=== PATIENT | female | born 1925 | race Caucasian/White ===

== ENCOUNTER 2017-04-05 18:15 | Inpatient (IN) | payer MEDICARE, BC ==
[~2017-04-05] VITALS: Ht 152.4 cm; Wt 63.5 kg
[~2017-04-05 18:15] MED LIST: ASPI81TA31 PO; METOPROLOL PO; TRAZ-144 PO
[2017-04-05] MEDS ORDERED: MORPHINE SULFATE 2 MG/1 ML DISP.SYRIN IV ONE ×2 (18:45→19:45)
[2017-04-05] MEDS ORDERED: ONDANSETRON 4 MG/2 ML VIAL IV ONE (18:45)
[2017-04-05] MEDS ORDERED: METO-302 PO (18:48)
[2017-04-05] MEDS ORDERED: BISA10SU8 RC (18:48)
[2017-04-05] MEDS ORDERED: ATOR20TA PO (18:48)
[2017-04-05] MEDS ORDERED: SENN-167 PO (18:48)
[2017-04-05] MEDS ORDERED: GABA-532 PO (18:48)
[2017-04-05] MEDS ORDERED: ACET-53 PO (18:48)
[2017-04-05] MEDS ORDERED: TRAZ-144 PO (18:48)
[2017-04-05] MEDS ORDERED: BUME0.5T3 PO (18:48)
[2017-04-05] MEDS ORDERED: SIME80TA15 PO (18:48)
[2017-04-05] MEDS ORDERED: LACT1CAP7 PO (18:48)
[2017-04-05] MEDS ORDERED: CRAN425C6 PO (18:48)
[2017-04-05] MEDS ORDERED: NA P133E RC (18:48)
[2017-04-05] MEDS ORDERED: MAGN400O6 PO (18:48)
[2017-04-05] MEDS ORDERED: MUPI22OI2 (18:48)
[2017-04-05] MEDS ORDERED: PANT20TA2 PO (18:48)
[2017-04-05] MEDS ORDERED: ONDANSETRON 4 MG/2 ML VIAL ONE (19:11)
[2017-04-05] MEDS ORDERED: MORPHINE SULFATE 2 MG/1 ML DISP.SYRIN ONE ×2 (19:11→22:36)
[2017-04-05] MEDS ORDERED: IV NORMAL SALINE 1000 ML BAG IV ONE (19:45)
[2017-04-05] MEDS ORDERED: MORPHINE SULFATE 4 MG/1 ML DISP.SYRIN ONE ×2 (19:55→21:00)
[2017-04-05 19:56] LABS: CARBON DIOXIDE 30 mmol/L (21-32); CHLORIDE 103 mmol/L (98-107); GLUCOSE 175 mg/dL (74-106); POTASSIUM 4.1 mmol/L (3.5-5.1); UREA NITROGEN, BLOOD 28 mg/dL (7-18)
[2017-04-05 19:57] LABS: BASOPHILS # (AUTO) 0.1 K/uL (0.0-8.0); BASOPHILS % (AUTO) 0.9 % (0.0-2.0); EOSINOPHILS % (AUTO) 0.4 % (0.0-7.0); HEMATOCRIT 42.4 % (37-47); HEMOGLOBIN 13.8 G/DL (12.0-16.0); LYMPHOCYTES # (AUTO) 1.1 K/UL (0.8-4.8); LYMPHOCYTES % (AUTO) 10.1 % (20.5-51.5); MEAN CORPUSCULAR HEMOGLOBIN 28.6 UUG (27.0-31.0); MEAN CORPUSCULAR HGB CONC 33 g/dL (32.0-37.0); MEAN CORPUSCULAR VOLUME 87.7 FL (81.0-99.0); MONOCYTES # (AUTO) 0.6 K/UL (0.1-1.30); MONOCYTES % (AUTO) 5.9 % (0.0-11.0); NEUTROPHILS # (AUTO) 8.7 K/UL (1.8-8.9); NEUTROPHILS % (AUTO) 82.7 % (38.5-71.5); PLATELET COUNT (AUTO) 180 K/UL (150-450); RED BLOOD CELL COUNT(AUTO) 4.83 MIL/UL (4.2-5.4); WHITE BLOOD COUNT (AUTO) 10.5 K/UL (4.0-11.2)
[2017-04-05 20:01] LABS: ALANINE AMINOTRANSFERASE 22 U/L (14-59); ALKALINE PHOSPHATASE 177 U/L (50-136); ASPARTATE AMINOTRANSFERASE 19 U/L (15-37); BILIRUBIN,DIRECT 0.1 mg/dL (0.0-0.2); BILIRUBIN,TOTAL 0.3 mg/dL (0.2-1.0); TOTAL PROTEIN, SERUM 7.8 g/dL (6.4-8.2)
[2017-04-05 20:25] LABS: BAND % (MANUAL) 8 % (0-10); LYMPHOCYTES % (MANUAL) 10 % (20-40); MONOCYTES % (MANUAL) 8 % (2-10); NEUTROPHILS % (MANUAL) 74 % (42-75)
--- NOTE | 2017-04-05 20:56 | NUR ---
Call placed to [facility], Dr. De La Cruz will be paged.
[2017-04-05] MEDS ORDERED: MORPHINE SULFATE 4 MG/1 ML DISP.SYRIN IV ONE (21:00)
--- NOTE | 2017-04-05 21:18 | NUR ---
Call placed to front desk lead ORTHODr. Torres will be paged.
--- NOTE | 2017-04-05 21:55 | NUR ---
Pt. admitted to TELE, under care of Dr. De La Cruz Belongs List completed
[2017-04-05] MEDS: METOPROLOL SUCCINATE XL 25 MG TAB.SR.24H PO SCH ×2 (22:15→22:24)
[2017-04-05] MEDS ORDERED: FLEET ENEMA 133 ML BOTTLE RC PRN (22:15)
[2017-04-05] MEDS ORDERED: ONDANSETRON 4 MG/2 ML VIAL IV PRN (22:15)
[2017-04-05] MEDS ORDERED: ACETAMINOPHEN 650 MG SUPP.RECT RC PRN (22:15)
[2017-04-05] MEDS ORDERED: SIMETHICONE 80 MG TAB.CHEW PO PRN (22:15)
[2017-04-05] MEDS ORDERED: LORAZEPAM 2 MG/1 ML VIAL IV PRN (22:15)
--- NOTE | 2017-04-05 22:15 | NUR ---
nsg: pt received awake but confused, crying, fr er with dx of left hip fracture. lungs sound clear to auscultate. tele, SR with pac's. heplock on right hand patent. daughter at the bedside. will cont to monitor.
[2017-04-05 22:19] VITALS: BP 143/87
[2017-04-05] MEDS: MORPHINE SULFATE 2 MG/1 ML DISP.SYRIN IV PRN (22:25)
[2017-04-05] MEDS ORDERED: METOPROLOL SUCCINATE XL 25 MG TAB.SR.24H PO ONE (22:36)
--- NOTE | 2017-04-05 22:36 | NUR ---
TROPROL NOT GIVEN, PT ALREADY TOOK MED.
[2017-04-05] MEDS ORDERED: VANCOMYCIN IV 1 G in PREMIXED 0 EACH IV ONE (23:30)
[2017-04-05] MEDS ORDERED: VANCOMYCIN 1000 MG VIAL ONE (23:52)
[2017-04-05 23:58] LABS: *BILIRUBIN,URIN NEGATIVE (NEGATIVE); *BLOOD, URINE NEGATIVE (NEGATIVE); *CLARITY,URINE CLOUDY (CLEAR); *COLOR,URINE YELLOW (YELLOW); *KETONES,URINE NEGATIVE (NEGATIVE); *PROTEIN,URINE NEGATIVE (NEGATIVE); *UROBILINOGEN,URINE 0.2 E.U./dl (NORMAL); LEUKOCYTE ESTERASE ,URINE TRACE (NEGATIVE); NITRITE, URINE NEGATIVE (NEGATIVE); PH,URINE 6.5 (5.0-8.0); UGLUCOSE NEGATIVE (NEGATIVE)
[2017-04-06 00:05] LABS: BACTERIA,URINE MANY /HPF (NONE SEEN); RBC,URINE 0-3 /HPF (0-3); SQUAMOUS EPITHELIAL CELL,UR FEW /HPF (NONE SEEN)
[2017-04-06 00:24] VITALS: BP 118/49
[2017-04-06] MEDS: MORPHINE SULFATE 2 MG/1 ML DISP.SYRIN IV PRN ×6 (03:29→18:47)
[2017-04-06] MEDS ORDERED: MORPHINE SULFATE 2 MG/1 ML DISP.SYRIN ONE (03:40)
[2017-04-06 04:00] VITALS: BP 104/47
[2017-04-06 04:26] VITALS: BP 93/56
--- NOTE | 2017-04-06 04:27 | NUR ---
nsg: pt hr increased to 130's, sinus tachycardia. pt is awake but calm, no acute distress noted. v/s as follows: 97.7F AX, 98 hr, 93/56, O2 sat on ra 96%. cont to monitor.
[2017-04-06 06:17] LABS: EOSINOPHILS % (AUTO) 0.5 % (0.0-7.0); LYMPHOCYTES # (AUTO) 1.5 K/UL (0.8-4.8); MEAN CORPUSCULAR HEMOGLOBIN 28.2 UUG (27.0-31.0); MEAN CORPUSCULAR HGB CONC 32 g/dL (32.0-37.0); MEAN CORPUSCULAR VOLUME 87.4 FL (81.0-99.0); MONOCYTES # (AUTO) 0.7 K/UL (0.1-1.30); MONOCYTES % (AUTO) 8.6 % (0.0-11.0); NEUTROPHILS # (AUTO) 5.4 K/UL (1.8-8.9); NEUTROPHILS % (AUTO) 71.9 % (38.5-71.5); PLATELET COUNT (AUTO) 171 K/UL (150-450)
--- NOTE | 2017-04-06 06:30 | NUR ---
NSG: PT COMFORTABLE RESTING IN BED, ASLEEP. BUCKS TRACTION, DVT PUMP IN PLACE. SON AT THE BEDSIDE.
[2017-04-06 06:34] LABS: WHITE BLOOD COUNT (AUTO) 7.6 K/UL (4.0-11.2)
[2017-04-06 06:35] LABS: HEMATOCRIT 35.5 % (37-47); HEMOGLOBIN 11.4 G/DL (12.0-16.0); RED BLOOD CELL COUNT(AUTO) 4.06 MIL/UL (4.2-5.4)
--- NOTE | 2017-04-06 08:00 | NUR ---
RECEIVED PATIENT IN BED SLEEPING ON AND OFF CONFUSED AND DISORIENTED HAS 5 POUNDS BUCKS TRACTION ORDERED WITH DVT PUMP TO HER RIGHT LEG AND BOND TO GRAVITY DRAINAGE PATIENTS SON IN LAW IS AT THE BEDSIDE MADE COMFORTABLE.
[2017-04-06] MEDS: SENNOSIDES 1 TABLET PO SCH ×2 (08:45→17:12)
[2017-04-06] MEDS: BUMETANIDE 1 MG TABLET PO SCH (08:45)
[2017-04-06] MEDS ORDERED: PANTOPRAZOLE SODIUM 40 MG VIAL IV SCH (09:00)
[2017-04-06 09:23] LABS: ALANINE AMINOTRANSFERASE 18 U/L (14-59); ALKALINE PHOSPHATASE 140 U/L (50-136); ASPARTATE AMINOTRANSFERASE 22 U/L (15-37); BILIRUBIN,TOTAL 0.4 mg/dL (0.2-1.0); CARBON DIOXIDE 29 mmol/L (21-32); CHLORIDE 107 mmol/L (98-107); CREATININE 1.1 mg/dL (0.6-1.3); GLUCOSE 95 mg/dL (74-106); POTASSIUM 4.1 mmol/L (3.5-5.1); TOTAL PROTEIN, SERUM 6.4 g/dL (6.4-8.2); UREA NITROGEN, BLOOD 27 mg/dL (7-18)
[2017-04-06] MEDS: CEFTRIAXONE 1 G in IV DEXTROSE 5% 50 ML IV SCH (09:47)
--- NOTE | 2017-04-06 10:00 | NUR ---
PATIENT PLACED ON FIRST STEP MATTRASS FOR GOOD BODY ALLIGNMENT.TURNED AND REPOSITIONED Q2H WITH MUCH DIFFICULTY SCREAMS AND PINCHES UNCOOPERATIVE EVEN AFTER PAIN MEDICATIONS GIVEN.
[2017-04-06] MEDS: METOPROLOL SUCCINATE XL 25 MG TAB.SR.24H PO SCH ×2 (10:15→13:59)
[2017-04-06] MEDS: IV NS 1000 ML 1,000 ML IV PRN (10:25)
--- NOTE | 2017-04-06 11:28 | NUR ---
DR COATES HERE TO SEE PATIENT WITH NO NEW ORDERS.PATIENTS SON IN LAW IS AT THE BEDSIDE.
[2017-04-06 11:49] VITALS: BP 114/66
--- NOTE | 2017-04-06 14:04 | NUR ---
HEART RATE AT THIS TIME IS 130 TO 132 VITALS CHECKED AND B/P IS 126/86 ATTEMPTED TO GIVE HER UNSCHEDULED METOPROLOL BUT SHE IS SPITTING THE MEDICATION OUT AT THIS TIME THE DAUGHTER AND SON IN LAW IS AT THE BEDSIDE AND IS ASSISTING WITH CALMING HER DOWN AND ENCOURAGING HER TO TAKE THE METOPROLOL.
--- NOTE | 2017-04-06 14:19 | NUR ---
CALLED AND SPOKE WITH DR RIVERA RE PATIENTS HEART RATE IS STILL ELEVATED WITH ORDERS AND NOTED.
[2017-04-06] MEDS ORDERED: CLONIDINE-TTS 1 PATCH TD SCH (14:30)
--- NOTE | 2017-04-06 15:28 | NUR ---
Clinical pharmacy note-Vancomycin dosing per pharmacy Subjective; To start Vancomycin dosing on this patient for cellulitis Objective; BUN 27 Scr 1.1 WBC 7.6 Temp 98 Assessment/Plan: Patient had Vancomycin 1 gram in ER today at 0019. Will continue Vancomycin 1 gram IV every 36hrs (second dose tomorrow at 1200) and draw trough by 4th dose(not ordered yet) for expected trough around 15. Will monitor renal function closely to adjust the dose if needed. Will monitor daily.
[2017-04-06 16:07] VITALS: BP 131/91
[2017-04-06] MEDS ORDERED: AMIODARONE HCL 200 MG TABLET PO SCH (17:45)
--- NOTE | 2017-04-06 18:00 | NUR ---
HEART RATE IS MUCH IMPROVED AT THIS TIME AT [address] MAS WITH NEW ORDERS AND NOTED.
[2017-04-06 20:25] VITALS: BP 120/80
[2017-04-06] MEDS: METOPROLOL TARTRATE 25 MG TABLET PO SCH (20:56)
[2017-04-06] MEDS: TRAZODONE 100 MG TABLET PO SCH (20:56)
[2017-04-06] MEDS ORDERED: TRAZODONE 50 MG TABLET PO SCH (21:00)
[2017-04-07 00:21] VITALS: BP 100/49
[2017-04-07] MEDS: IV NS 1000 ML 1,000 ML IV PRN ×2 (02:00→16:18)
[2017-04-07] MEDS: MORPHINE SULFATE 2 MG/1 ML DISP.SYRIN IV PRN ×5 (02:54→21:04)
[2017-04-07 04:00] VITALS: BP 165/70
--- NOTE | 2017-04-07 05:55 | NUR ---
Patient slepted some during the night three to four hours total intermittently in no acute distress, when awake patient starts pulling off tele , blanket, gown and IV. pt confused and disoriented with fearful facial expression, grimaces noted, BP elevated 165/70. pt re-oriented x 4 frequently and medicated with morphine 2mg IVP q3hr prn with Relief, shortly after falls asleep. BP and HR improved 78-80's SR.
[2017-04-07] MEDS: METOPROLOL TARTRATE 25 MG TABLET PO SCH ×2 (09:00→20:52)
[2017-04-07] MEDS: SENNOSIDES 1 TABLET PO SCH ×2 (09:15→16:17)
[2017-04-07] MEDS: BUMETANIDE 1 MG TABLET PO SCH (09:15)
[2017-04-07] MEDS: CEFTRIAXONE 1 G in IV DEXTROSE 5% 50 ML IV SCH (09:15)
[2017-04-07] MEDS: AMIODARONE HCL 200 MG TABLET PO SCH ×2 (09:15→20:51)
--- NOTE | 2017-04-07 09:23 | NUR ---
BLOOD PRESSURE CHECKED AND ITS 117/44 HEART RATE IS 80 DUE ORDER FOR AMIODARONE GIVEN BUT HER METOPROLOL HELD WILL INFORM THE DOCTOR.
--- NOTE | 2017-04-07 09:50 | NUR ---
ON FIRST STEP MATTRASS DOZING ON AND OFF AND CONFUSED AND DISORIENTED WHEN AWAKE WITH NO S/S OF PAIN OR DISCOMFORTS.PATIENTS SON IN LAW JESS HERE AT HIS BEDSIDE ASSISTING NEEDED.APPETITE IS POOR FED BY HER SON IN LAW ORAL FLUID INTAKE HAS BEEN ADEQUATE BUCKS TRACTION REMAIN IN USE ORDERED TURNED AND REPOSITIONED Q2H AND TOLERATED POORLY MADE COMFORTABLE AND WILL CONTINUE TO OBSERVE.
[2017-04-07] MEDS ORDERED: VANCOMYCIN IV 1 G in PREMIXED 0 EACH IV SCH (12:00)
[2017-04-07 12:06] VITALS: BP 114/84
--- NOTE | 2017-04-07 13:00 | NUR ---
PER DR RIVERA PATIENT IS SCHEDULED FOR SURGERY TOMORROW BY DR COATES TO REPAIR HER BROKEN HIP.NO ORDERS FROM DR COATES OF YET.PATIENTS DAUGHTER CAMRYN CORTEZ.
[2017-04-07 16:48] VITALS: BP 123/59
--- NOTE | 2017-04-07 17:49 | NUR ---
DR MAS HERE TO SEE PATIENT AWARE OF THE FLUCTUATIONS IN HER BLOOD PRESSURES THE SYSTOLIC AND THE DIASTOLIC AND THE HEART RATE GOING HIGH 129 TODAY DESPITE THE AMIODARONE WITH NEW ORDERS AND NOTED.
--- NOTE | 2017-04-07 18:00 | NUR ---
CONFUSED DISORIENTED ON AND OFF CONFUSSION AND DISORIENTATION PATIENTS ZIAN COWAN IS AT THE BEDSIDE SAFETY PROVIDED AT ALL TIMES.
[2017-04-07 20:13] VITALS: BP 144/81
[2017-04-07] MEDS: ACETAMINOPHEN 325 MG TABLET PO PRN (20:51)
[2017-04-07] MEDS: TRAZODONE 100 MG TABLET PO SCH (20:51)
[2017-04-07] MEDS ORDERED: MORPHINE SULFATE 2 MG/1 ML DISP.SYRIN IV PRN (21:00)
[2017-04-07] MEDS: Z GUARD REMEDY PASTE 57 GM TUBE TOP SCH (21:00)
[2017-04-08] VITALS (9 sets, daily range): BP systolic 102–138; BP diastolic 47–65
[2017-04-08] MEDS: MORPHINE SULFATE 2 MG/1 ML DISP.SYRIN IV PRN ×5 (02:21→23:38)
[2017-04-08] MEDS: IV NS 1000 ML 1,000 ML IV PRN (06:40)
[2017-04-08] MEDS: PANTOPRAZOLE SODIUM 40 MG TABLET.DR PO SCH (06:42)
[2017-04-08] MEDS: AMIODARONE HCL 200 MG TABLET PO SCH ×2 (08:44→20:32)
[2017-04-08] MEDS: METOPROLOL TARTRATE 25 MG TABLET PO SCH ×2 (08:45→20:33)
[2017-04-08] MEDS: CEFTRIAXONE 1 G in IV DEXTROSE 5% 50 ML IV SCH (08:57)
[2017-04-08] MEDS: SENNOSIDES 1 TABLET PO SCH ×3 (08:57→17:20)
[2017-04-08] MEDS: BUMETANIDE 1 MG TABLET PO SCH (08:57)
[2017-04-08] MEDS: Z GUARD REMEDY PASTE 57 GM TUBE TOP SCH ×2 (09:01→20:33)
--- NOTE | 2017-04-08 11:32 | NUR ---
PATIENTS DAUGHTER CAMRYN HERE AND SIGNED THE CONSCENT FOR THE LEFT HIP FRACTURE REPAIR BY DR COATES TODAY
[2017-04-08 11:36] LABS: BASOPHILS # (AUTO) 0.1 K/uL (0.0-8.0); BASOPHILS % (AUTO) 1.3 % (0.0-2.0); EOSINOPHILS # (AUTO) 0.1 K/uL (0.0-0.7); EOSINOPHILS % (AUTO) 1.2 % (0.0-7.0); HEMATOCRIT 33.1 % (37-47); HEMOGLOBIN 10.7 G/DL (12.0-16.0); LYMPHOCYTES # (AUTO) 0.9 K/UL (0.8-4.8); LYMPHOCYTES % (AUTO) 13.5 % (20.5-51.5); MEAN CORPUSCULAR HEMOGLOBIN 28.4 UUG (27.0-31.0); MEAN CORPUSCULAR HGB CONC 32 g/dL (32.0-37.0); MEAN CORPUSCULAR VOLUME 87.9 FL (81.0-99.0); MONOCYTES # (AUTO) 0.6 K/UL (0.1-1.30); MONOCYTES % (AUTO) 8.3 % (0.0-11.0); NEUTROPHILS # (AUTO) 5.3 K/UL (1.8-8.9); NEUTROPHILS % (AUTO) 75.7 % (38.5-71.5); PLATELET COUNT (AUTO) 141 K/UL (150-450); RED BLOOD CELL COUNT(AUTO) 3.77 MIL/UL (4.2-5.4)
[2017-04-08 11:39] LABS: CARBON DIOXIDE 27 mmol/L (21-32); CHLORIDE 108 mmol/L (98-107); CREATININE 0.8 mg/dL (0.6-1.3); GLUCOSE 124 mg/dL (74-106); POTASSIUM 3.6 mmol/L (3.5-5.1); UREA NITROGEN, BLOOD 16 mg/dL (7-18)
[2017-04-08 11:45] LABS: ALANINE AMINOTRANSFERASE 13 U/L (14-59); ALKALINE PHOSPHATASE 114 U/L (50-136); ASPARTATE AMINOTRANSFERASE 16 U/L (15-37); BILIRUBIN,TOTAL 0.4 mg/dL (0.2-1.0); MAGNESIUM 1.9 mg/dL (1.8-2.4); PHOSPHOROUS 3.3 mg/dL (2.5-4.9)
[2017-04-08] MEDS ORDERED: IV NORMAL SALINE 1000 ML BAG IV ONE (11:47)
[2017-04-08] MEDS ORDERED: ONDANSETRON 4 MG/2 ML VIAL IV ONE (11:47)
[2017-04-08] MEDS ORDERED: PROPOFOL 200 MG/20 ML BOTTLE IV ONE (11:47)
[2017-04-08] MEDS ORDERED: CEFAZOLIN 1 G VIAL MC ONE (11:47)
[2017-04-08] MEDS ORDERED: PHENYLEPHRINE 10 MG/1 ML VIAL MC ONE (11:47)
[2017-04-08] MEDS ORDERED: LIDOCAINE HCL 1% 20 ML VIAL MC ONE (11:47)
[2017-04-08] MEDS ORDERED: SEVOFLURANE 250 ML BOTTLE IH ONE (11:47)
[2017-04-08] MEDS ORDERED: POLYMYXIN B SULFATE 500,000 UNITS, BACITRACIN 50,000 UNITS, NORMAL SALINE 20 ML MC ONE ×3 (13:15)
--- NOTE | 2017-04-08 13:30 | NUR ---
PATIENT PICKED UP BY BED TO OR FOR SCHEDULED SURGERY WITH HER DAUGHTER CAMRYN AT THE BEDSIDE AND FOLLOWED TO THE BASEMENT.
[2017-04-08] MEDS ORDERED: FENTANYL CITRATE 100 MCG/2 ML AMPUL ONE ×2 (13:37→16:04)
[2017-04-08] MEDS ORDERED: hydrALAZINE HCL 20 MG/1 ML VIAL ONE (15:58)
--- NOTE | 2017-04-08 16:40 | NUR ---
PATIENT RETURNED BACK TO HER ROOM BY BED AWAKE CONFUSED AND DISORIENTED WITH O2 AT 2L/M BY NASAL CANULLA WITH SATS AT 95-96%.LEFT HIP WITH BULKY DRESSING AND ICE PACK IN PLACE.BILATERAL DVT PUMPS ABLE TO WIGGLE TOES.PATIENT MADE COMFORTABLE WILL CONTINUE TO OBSERVE.
[2017-04-08] MEDS: POTASSIUM CHLORIDE 20 MEQ in IV D5 1/2 NS 1000 ML 1,000 ML IV PRN (17:14)
--- NOTE | 2017-04-08 18:30 | NUR ---
PATIENT IS AGITATED AND RESTLESS PULLED OUT HER O2 CANULLA SATURATION IS 87-88% DR PADILLA NOTIFIED WITH ORDER FOR SERROQUEL BUT THE PATIENTS DAUGHTER DOES NOT WANT THE SERROQUEL AT THIS TIME AND DR RIVERA IS IN THE ROOM TALKING WITH HER.
[2017-04-08] MEDS: QUETIAPINE FUMARATE 25 MG TABLET PO PRN (20:32)
[2017-04-08] MEDS: TRAZODONE 100 MG TABLET PO SCH (20:33)
[2017-04-08] MEDS: ACETAMINOPHEN 325 MG TABLET PO PRN (20:33)
[2017-04-08] MEDS: MEROPENEM 0.5 G in IV NORMAL SALINE 50 ML IV SCH (21:09)
[2017-04-08] MEDS ORDERED: CEFAZOLIN 1 G in PREMIXED 1 EACH IV SCH (22:00)
[2017-04-08] MEDS ORDERED: MEROPENEM 0.5 G in IV NORMAL SALINE 50 ML IV SCH (22:00)
[2017-04-09 00:06] VITALS: BP 91/42
[2017-04-09] MEDS: MORPHINE SULFATE 2 MG/1 ML DISP.SYRIN IV PRN ×4 (02:42→20:18)
[2017-04-09 04:00] VITALS: BP 118/61
[2017-04-09] MEDS: PANTOPRAZOLE SODIUM 40 MG TABLET.DR PO SCH (06:32)
[2017-04-09 07:27] LABS: BASOPHILS % (AUTO) 0.5 % (0.0-2.0); EOSINOPHILS # (AUTO) 0.1 K/uL (0.0-0.7); EOSINOPHILS % (AUTO) 2.4 % (0.0-7.0); LYMPHOCYTES # (AUTO) 0.8 K/UL (0.8-4.8); LYMPHOCYTES % (AUTO) 12.8 % (20.5-51.5); MEAN CORPUSCULAR HEMOGLOBIN 28.5 UUG (27.0-31.0); MEAN CORPUSCULAR HGB CONC 32 g/dL (32.0-37.0); MEAN CORPUSCULAR VOLUME 87.9 FL (81.0-99.0); MONOCYTES # (AUTO) 0.7 K/UL (0.1-1.30); NEUTROPHILS # (AUTO) 4.3 K/UL (1.8-8.9); NEUTROPHILS % (AUTO) 72.3 % (38.5-71.5); PLATELET COUNT (AUTO) 130 K/UL (150-450); WHITE BLOOD COUNT (AUTO) 5.9 K/UL (4.0-11.2)
[2017-04-09 07:42] LABS: ALANINE AMINOTRANSFERASE 14 U/L (14-59); ALKALINE PHOSPHATASE 87 U/L (50-136); ASPARTATE AMINOTRANSFERASE 19 U/L (15-37); BILIRUBIN,TOTAL 0.3 mg/dL (0.2-1.0); CARBON DIOXIDE 25 mmol/L (21-32); CHLORIDE 112 mmol/L (98-107); CREATININE 0.8 mg/dL (0.6-1.3); GLUCOSE 142 mg/dL (74-106); MAGNESIUM 1.9 mg/dL (1.8-2.4); PHOSPHOROUS 2.9 mg/dL (2.5-4.9); POTASSIUM 4.1 mmol/L (3.5-5.1); UREA NITROGEN, BLOOD 20 mg/dL (7-18)
[2017-04-09 07:46] LABS: HEMATOCRIT 24.9 % (37-47); HEMOGLOBIN 8.1 G/DL (12.0-16.0); RED BLOOD CELL COUNT(AUTO) 2.83 MIL/UL (4.2-5.4)
[2017-04-09] MEDS: POTASSIUM CHLORIDE 20 MEQ in IV D5 1/2 NS 1000 ML 1,000 ML IV PRN ×2 (08:03→22:07)
[2017-04-09] MEDS: METOPROLOL TARTRATE 25 MG TABLET PO SCH ×2 (08:04→20:19)
[2017-04-09] MEDS: QUETIAPINE FUMARATE 25 MG TABLET PO PRN ×2 (08:04→20:18)
[2017-04-09] MEDS: SENNOSIDES 1 TABLET PO SCH ×2 (08:04→16:56)
[2017-04-09] MEDS: BUMETANIDE 1 MG TABLET PO SCH (08:04)
[2017-04-09] MEDS: AMIODARONE HCL 200 MG TABLET PO SCH ×2 (08:04→20:18)
--- NOTE | 2017-04-09 08:04 | NUR ---
PATIENT IS VERY AGITATED AND PULLING ON HER DRESSING AND IV MEDICATED WITH SERROQUEL ORDERED AND WILL OBSERVE.
[2017-04-09] MEDS: Z GUARD REMEDY PASTE 57 GM TUBE TOP SCH ×2 (08:07→20:20)
[2017-04-09] MEDS: MEROPENEM 0.5 G in IV NORMAL SALINE 50 ML IV SCH ×2 (09:16→22:08)
--- NOTE | 2017-04-09 10:35 | NUR ---
PATIENT MEDICATED WITH MORPHINE FOR PAIN AWAITING FOR THE PHYSICAL THERAPY TO DO EVALUATION AND GET PATIENT OUT OF BED UNTO THE COMMODE.
[2017-04-09 11:30] VITALS: BP 116/60
--- NOTE | 2017-04-09 15:00 | NUR ---
PATIENT SEEN BY THE PHYSICAL THERAPY SEATED AT THE EDGE OF THE BED UNABLE TO STAND ON RIGHT LEG PER THE PHYSICAL THERAPY AWAITING FOR DR COATES TO DEFINE THE WEIGHT BEARING STATUS.
[2017-04-09 16:02] VITALS: BP 111/50
--- NOTE | 2017-04-09 17:57 | NUR ---
RESTING IN BED WITH HER DAUGHTER AT THE BEDSIDE ASSISTING NEEDED.REMAINS CONFUSED AND DISORIENTED AT THIS TIME.HEELS FLOATED REPOSITIONED WITH PAS ORDERED NOT IN DISTRESS AT THIS TIME.
[2017-04-09] MEDS: TRAZODONE 100 MG TABLET PO SCH (20:19)
[2017-04-09 20:53] VITALS: BP 110/54
--- NOTE | 2017-04-10 | NUR ---
Pt on bed asleep, resting well. No acute distress noted. Breathing even and unlabored with normal respirations. No c/o pain. Turned and repositioned patient. No signs/symptoms of infection noted on surgical site. Vital signs stable. All needs anticipated. Will continue to monitor.
[2017-04-10 00:13] VITALS: BP 107/53
[2017-04-10 04:00] VITALS: BP 129/53
[2017-04-10] MEDS: MORPHINE SULFATE 2 MG/1 ML DISP.SYRIN IV PRN ×3 (05:35→17:39)
[2017-04-10] MEDS: Z GUARD REMEDY PASTE 57 GM TUBE TOP SCH (05:38)
[2017-04-10] MEDS: PANTOPRAZOLE SODIUM 40 MG TABLET.DR PO SCH (05:53)
--- NOTE | 2017-04-10 07:00 | NUR ---
Patient rested well, no acute resp distress, vital signs are stable. Sinus rhythm on the monitor. Hip incision site care dressing done, isac intact. Saturday wound pictures in chart.
[2017-04-10 08:54] LABS: BASOPHILS % (AUTO) 0.6 % (0.0-2.0); EOSINOPHILS # (AUTO) 0.3 K/uL (0.0-0.7); EOSINOPHILS % (AUTO) 4.8 % (0.0-7.0); HEMATOCRIT 26.7 % (37-47); HEMOGLOBIN 8.8 G/DL (12.0-16.0); LYMPHOCYTES # (AUTO) 0.9 K/UL (0.8-4.8); LYMPHOCYTES % (AUTO) 15.2 % (20.5-51.5); MEAN CORPUSCULAR HGB CONC 33 g/dL (32.0-37.0); MEAN CORPUSCULAR VOLUME 87.9 FL (81.0-99.0); MONOCYTES # (AUTO) 0.5 K/UL (0.1-1.30); MONOCYTES % (AUTO) 8.5 % (0.0-11.0); NEUTROPHILS % (AUTO) 70.9 % (38.5-71.5); PLATELET COUNT (AUTO) 177 K/UL (150-450); RED BLOOD CELL COUNT(AUTO) 3.04 MIL/UL (4.2-5.4); WHITE BLOOD COUNT (AUTO) 5.7 K/UL (4.0-11.2)
[2017-04-10] MEDS ORDERED: MAGNESIUM HYDROXIDE 30 ML LIQUID UDC PO PRN (09:00)
[2017-04-10] MEDS: METOPROLOL TARTRATE 25 MG TABLET PO SCH (09:00)
[2017-04-10] MEDS ORDERED: BISACODYL 10 MG SUPP.RECT RC PRN (09:00)
[2017-04-10] MEDS: SENNOSIDES 1 TABLET PO SCH ×2 (09:03→17:00)
[2017-04-10] MEDS: BUMETANIDE 1 MG TABLET PO SCH (09:03)
[2017-04-10] MEDS: MEROPENEM 0.5 G in IV NORMAL SALINE 50 ML IV SCH (09:03)
[2017-04-10] MEDS: ACETAMINOPHEN 325 MG TABLET PO PRN (09:03)
[2017-04-10] MEDS: AMIODARONE HCL 200 MG TABLET PO SCH (09:04)
--- NOTE | 2017-04-10 10:43 | NUR ---
PER DR. COATES PUT IN "PARTIAL WEIGHT BEARING AN LEFT LOWER EXTREMITY", PUT IN ORDER FOR PT
--- NOTE | 2017-04-10 11:50 | NUR ---
PER DR. ALEXANDRE "LEAVE THE BOND IN FOR ANOTHER DAY". PT REPORTS PAIN WHEN MOVED IN BED, PT WAS NONCOMPLIANT WITH PHYSICAL THERAPY. PT IS CONFUSED, AGITATED AT TIMES. BOND IS DRAINING CLEAR YELLOW URINE
[2017-04-10 12:06] VITALS: BP 111/51
[2017-04-10] MEDS: POTASSIUM CHLORIDE 20 MEQ in IV D5 1/2 NS 1000 ML 1,000 ML IV PRN (13:15)
--- NOTE | 2017-04-10 15:04 | NUR ---
THIS RECORDER SPOKE WITH KERRI AT THE [facility] [phone] JEFF PULIDO'S FAMILY [facility] FOR [facility], AND SECOND CHOICE URS[facility] AT [facility], . AWAITING CALL BACK
--- NOTE | 2017-04-10 15:45 | NUR ---
THIS RECORDER INFORMED PATIENT JEFF PULIDO'S DAUGHTER CAMRYN CACERES THAT THE [facility] WILL NOT BE ABLE TO ACCEPT HER FOR ADMISSION BUT [facility] WILL. CAMRYN REQUESTED WE CONTACT ALSO [facility]. SPOKE WITH SARAH AT [facility] [phone], ALL INFORMATION FAXED AWAITING FOR CALL BACK
--- NOTE | 2017-04-10 15:50 | NUR ---
PER DR. COATES "WILL SEE THE PT AFTER D/C TO REMOVE THE ADENIKE". IN REGARDS OF THE DRESSING "KEEP IT CLEAN AND DRY". WOUND CARE IS DONE
[2017-04-10 16:25] VITALS: BP 148/56
--- NOTE | 2017-04-10 16:29 | NUR ---
THIS RECORDER RECEIVED A CALL FROM SARAH AT [facility] STATING THAT THEY WILL NOT ACCEPT JEFF PULIDO AT THIS TIME DAUGHTER CAMRYN INFORMED. CAMRYN REQUESTED I CONTACT [facility]. SPOKE WITH CONOR AT [facility], ALL PAPERS FAXED PER REQUEST, AWAITING A CALL BACK.
--- NOTE | 2017-04-10 17:10 | NUR ---
THIS RECORDER RECEIVED A CALL FROM [facility] STATING THAT THEY WILL ACCEPT JEFF PULIDO AT THERE FACILITY, PATIENTS DAUGHTER CAMRYN INFORMED. CAMRYN STATES SHE NOW HAS CHANGED HER MIND AND WOULD LIKE HER MOTHER TO GO TO [facility]. [facility]RANGMENTS MADE FOR TRANSPORT [facility]IA [facility]. PATIENTS NURSE MUMTAZ INFORMED AND RECEIVED NUMBER TO CALL FOR REPORT.
--- NOTE | 2017-04-10 18:11 | NUR ---
discharge note: PT IS AWAKE, CONFUSED. NO S/S OF RESPIRATORY DISTRESS NOTED. PT IN 02 SAT AT 2L. VS WNL. WOUND CARE IS DONE, THE WOUND IS CLEAN AND DRY. REPORT IS GIVEN. NO PAIN REPORTED. ALL SAFETY NEEDS ARE MET. DAUGHTER BY THE BEDSIDE. NO S/S OF BLEEDING. PER DR. ALEXANDRE "LEAVE THE BOND IN TO SNF". BOND IS DRAINING LIGHT/CLEAR URINE. IV/WRISTBAND REMOVED.
== END 2017-04-10 18:15 | DRG 956 ==
LOC: ER 18:15 → MED 21:32 → TELE 22:13 → MED 04-10 12:05
PROVIDERS: ADMIT Internal Medicine; ATTEND Internal Medicine
PROC: 2W6PXZZ Traction of Left Upper Leg (ICD-10-PCS; 2017-04-05)
PROC: 0QS706Z Reposition Left Upper Femur with Intramedullary Internal Fixation Device, Open Approach (ICD-10-PCS; principal; 2017-04-08 14:24)
DX: S72.142A Displaced intertrochanteric fracture of left femur, initial encounter for closed fracture (principal); S32.592A Other specified fracture of left pubis, initial encounter for closed fracture; Z66 Do not resuscitate; I47.1 Supraventricular tachycardia; I50.32 Chronic diastolic (congestive) heart failure; N39.0 Urinary tract infection, site not specified; S72.22XA Displaced subtrochanteric fracture of left femur, initial encounter for closed fracture; W19.XXXA Unspecified fall, initial encounter; Y92.099 Unspecified place in other non-institutional residence as the place of occurrence of the external cause; Z96.641 Presence of right artificial hip joint; F01.50 Vascular dementia, unspecified severity, without behavioral disturbance, psychotic disturbance, mood disturbance, and anxiety; Z95.4 Presence of other heart-valve replacement; E78.5 Hyperlipidemia, unspecified; Z79.82 Long term (current) use of aspirin; Z79.899 Other long term (current) drug therapy; Z86.73 Personal history of transient ischemic attack (TIA), and cerebral infarction without residual deficits; I11.0 Hypertensive heart disease with heart failure; B96.20 Unspecified Escherichia coli [E. coli] as the cause of diseases classified elsewhere; Z16.12 Extended spectrum beta lactamase (ESBL) resistance; I25.10 Atherosclerotic heart disease of native coronary artery without angina pectoris; I48.0 Paroxysmal atrial fibrillation; Z85.828 Personal history of other malignant neoplasm of skin; D64.9 Anemia, unspecified; M85.862 Other specified disorders of bone density and structure, left lower leg
CPT/HCPCS: 36415; 70030-TC; 71010; 72170; 73502; 76000; 83735; 84100; 84443; 85025; 85730; 86850; 86870; 86900; 86901; 87077; 87086; 93005; 93307; 97110; 97161; 97530; A4663; C9113; J0360; J0690; J0696; J2185; J2270; J2370; J2405; J3010; J3370; J3480; J3490; J7030; J7050; J7060